=== PATIENT | female | born 1995 | race Caucasian/White ===

== ENCOUNTER 2021-11-01 12:33 | Outpatient (CLI) | payer OTHER ==
--- NOTE | 2021-11-01 17:16 | XRAY Report ---
PROCEDURE: Foot 3 View RT INDICATIONS: CRUSHING INJURY OF R FOOT TECHNIQUE: 3 views of the foot were acquired. COMPARISON: None. FINDINGS: Bones: No fractures or dislocations. 2 sclerotic foci in calcaneus are most likely bone islands. Soft tissues: No tibiotalar joint effusion. Achilles tendon appears normal. IMPRESSION: 1. No acute osseous abnormalities. 2. Suspect a couple of bone islands in calcaneus. Reviewed by: Palak Gonzales MD on 11/01/2021 5:14 PM PDT Approved by: Palak Gonzales MD on 11/01/2021 5:14 PM PDT Station ID: [id number]
== END 2021-11-01 23:59 | disposition home or self-care (01) ==
LOC: DI.N 12:33
PROVIDERS: ATTEND Nurse Practitioner
DX: S97.81XA Crushing injury of right foot, initial encounter (principal); R93.6 Abnormal findings on diagnostic imaging of limbs